=== PATIENT | female | born 1970 | race Caucasian/White ===

== ENCOUNTER → 2016-12-06 | Day surgery (SDC) | payer MEDICARE, OTHER ==
[~2016-12-06] MED LIST: DULOXETINE HCL60 MG PO; NEURONTIN100 MG PO; NOVOLOG FL100 UNIT/1 SUBQ; SYNTHROID PO; TOUJEO SOL300 UNIT/1 SUBQ; TRAZODONE HCL100 MG PO; XODOL 7.5-3001 EACH PO
--- NOTE | ~2016-12-06 | EKG ---
PATIENT: KATARINA ARAYA UNIT #: [id number] Ventricular Rate: 69 BPM Atrial Rate: 69 BPM P-R Interval: 150 ms QRS Duration: 80 ms Q-T Interval: 478 ms QTC Calculation(Bezet): 512 ms P [place]: 34 degrees Calculated R [place]: -3 degrees Calculated T [place]: 25 degrees Diagnosis Line: Normal sinus rhythm Diagnosis Line: Prolonged QT Diagnosis Line: Abnormal ECG Diagnosis Line: No previous ECGs available Diagnosis Line: Confirmed by VINICIUS ESCOBAR MD ([id number]) on 12/09/2016 Diagnosis Line: 3:57:23 PM INTERPRETING MD: SHAWN WADDELL
--- NOTE | ~2016-12-06 | OR ---
Unit #: [id number] #: [id number] Patient: MAGNOLIA WINSTON [id number] [address] [place], [place] [address] [id number] O MR#: [id number] NAME: MAGNOLIA WINSTON ROOM: Date of Procedure: 12/06/2016 Admission Date: 12/06/2016 Surgeon: Michel Fountain M.D. : 1970 Attending Physician: Michel Fountain M.D. Primary Care Physician: Generic Doctor Not In System OPERATIVE REPORT PREOPERATIVE DIAGNOSES 1. Multilevel lumbar degenerative disk disease. 2. Compression fracture, lumbar spine. 3. Chronic pain syndrome. POSTOPERATIVE DIAGNOSES 1. Multilevel lumbar degenerative disk disease. 2. Compression fracture, lumbar spine. 3. Chronic pain syndrome. PROCEDURES PERFORMED 1. Implantation of intrathecal Med[employer]onic SynchroMed II pump. 2. Implantation of Ascenda catheter. 3. Fluoroscopy. 4. Physician filling of pump. SURGICAL INDICATION AND RATIONALE Ms. Magnolia Winston is a 46-year-old female, who has been having chronic intractable pain, mainly in the low back secondary to multilevel degenerative disk disease with various other musculoskeletal problems including a compression fracture in the lumbar spine along with sacroiliitis. The patient also has a history of multiple joints involvement with indication of rheumatoid arthritis history. The patient has tried various conservative treatment options including epidural injections, radiofrequency ablation, opioid medication with escalating doses, nonsteroidal anti-inflammatory medications, physical therapy, and med care manager with minimal results. The patient did undergo an epidural pain pump trial with hydromorphone, in which she got about 80% to 90% benefit. The patient is keen to move forward to have this pump implanted. The patient has undergone an extensive education process regarding the SynchroMed pump with regard to the risks, benefits, and alternatives available including the consent decree. I have answered all the patient's questions to her satisfaction and I used a teach-back method to make sure that the patient understood my explanations. The patient also had an education process with [employer] senior outside sales representative, Nazia Ervin, regarding the same including the consent decree. All the patient's questions were answered to her satisfaction. The patient also had a psychological evaluation along with a cardiac evaluation, both of which did not show any abnormalities. DESCRIPTION OF PROCEDURE After obtaining full informed consent and after discussion with the Unit #: [id number] #: [id number] Patient: MAGNOLIA WINSTON patient of possible complications including infection, bleeding, paralysis, mild headaches, , and other perioperative complications were discussed with the patient and consent was obtained in front of nurse, Kathy. The patient was then taken back to the operating room, where a time-out was done in accordance to the joint commission guidelines where the patient's identity, procedure, and side of procedure were verified. The patient received antibiotic coverage 30 minutes before entering the operating room. The patient was then induced with general anesthesia and then was positioned in the prone position. The anesthesiologist made sure that all pressure points were padded. The patient was then prepped and draped in the usual fashion. Then, under fluoroscopic view, I was able to identify the interspace between L2 and L3, and after the skin target sites were anesthetized, I made an incision in the midline measuring about 4 cm in length. With the help of the Bovie, I was able to undermine the underlying tissue to allow space to place the SynchroMed Ascenda catheter. Once this was done, this incision was copiously irrigated with irrigant. I then anesthetized the skin in the low back. I made an incision measuring about 5.5 cm to create a pocket to house the reservoir of the pump. Once again with the help of the Bovie, I was able to create a pocket, which allowed the pump to snuggly fit. This pocket was once again copiously irrigated with irrigant. Then, under fluoroscopic view, an AP view, I was able to identify the interspace between L2 and L3, and I passed a 17-gauge Tuohy needle into the intrathecal space and I was able to attain this at first pass with clear flow of CSF. Once this was done, I navigated a [employer] SynchroMed catheter through the Tuohy needle such that the tip was at the upper border of T7. This was done under live fluoroscopic view. Once this was done, the stylet along with the Tuohy needle were removed and I used a special anchoring device to anchor this catheter to the interspinous ligament. This catheter was then secured to the underlying tissue using 3-0 Prolene sutures. I then used a tunneling device to tunnel this catheter into the pocket. The catheter was then cut to size and I used a special connector to connect this piece of catheter to the SynchroMed II pump. Once the connection was complete, I aspirated the SynchroMed pump side-port with a 24-gauge Saenz needle and I was able to aspirate CSF. This signifies that the pathway was intact. This pump was filled by me earlier on with hydromorphone at a concentration of 5 mg/ mL totaling 20 mL. Once this was done, the pump was then secured to the underlying tissue using 3-0 Prolene via the four anchors. I then sprinkled 1 g of vancomycin powder into the incision and the midline incision also. After this was done, the two incisions were carefully inspected and closed using interrupted 3-0 Vicryl sutures and the skin was approximated with kirsten. A Telfa-Tegaderm dressing was placed and the patient was brought back to the recovery room for neurological monitoring. The patient had an uneventful recovery period and was discharged home when she met criteria and was instructed to follow up in my office in 7 days to have the kirsten removed. The patient's pump was started at a daily dose of 0.3 mg and the PTM (patient home therapy teacher) was activated at 0.02 mg per activation and only two activations were allowed. The Med[employer]onic catheter serial number was [id number] and the SynchroMed II pump serial number was [id number]. Dictated by... Romel Bang/mane TD: 12/09/2016 21:03 Unit #: [id number] #: [id number] Patient: MAGNOLIA WINSTON JOB #: [id number] OPERATIVE REPORT Page 1 of 1 X Michel Fountain MD PROCEDURE OPERATIVE NOTE
--- NOTE | ~2016-12-06 | CR181 ---
[facility] A Service of [facility] RADIOLOGY TEXT RESULTS PATIENT: KATARINA ARAYA LOCATION: [facility] : 74 UNIT #: [id number] AGE: [address]: Michel Fountain MD SEX: F ORDER DR: [id number] [facility] [address] [facility]. [place], [place] [address] [id number] O MR#: [id number] Acc #: [id number] NAME: KATARINA ARAYA : 1970 SEX: F STUDY DATE/TIME: 12/06/2016 10:56 UNIT: [facility] ROOM: STUDY DESCRIPTION: CR Lumbar Spine 2 or 3 Views Attending Physician: Michel Fountain M.D. Ordering Physician: Michel Fountain M.D. Primary Care Physician: Generic Doctor Not In System MEDICAL IMAGING REPORT This report is preliminary unless electronic signature is present EXAM Lumbar intraoperative fluoroscopic images. DATE OF EXAM 12/06/2016 HISTORY Pain pump in OR. FLUOROSCOPY TIME 34 seconds. 2 fluoroscopic spot images. FINDINGS The 2 fluoroscopic spot images show patient undergoing intrathecal pain pump procedure. Incidental note is made of anterior wedge compression deformity at what is probably the L2 vertebral body; however, exact spine numbering unclear on basis of this examination alone, and I have no prior studies for comparison. Comparison with prior studies normally recommended. Acuity of this finding is unclear. There is mild compression deformity at what may be the L3 vertebral body as well. Please see procedural note for further procedural details. Dictated by... Sancho Krishnan M.D. THIS IS AN ELECTRONICALLY VERIFIED REPORT Sancho Krishnan M.D. at 12/07/2016 6:48 PM JULIO/sima TD: 12/06/2016 23:26 [facility] A Service [facility] RADIOLOGY TEXT RESULTS PATIENT: KATARINA ARAYA LOCATION: [facility] : 74 UNIT #: [id number] AGE: [address]: Michel Fountain MD SEX: F ORDER DR: JOB #: [id number] MEDICAL IMAGING REPORT Page 1 of 1 COPY
[2016-12-06 09:08] LABS: CALCIUM SERUM 8.7 mg/dL (8.4-10.2); CREATININE SERUM 0.5 mg/dL (0.6-1.4); GLOM FILT RATE Estimated 117.7 mL/min (>60); POTASSIUM 3.9 mmol/L (3.5-5.1)
== END | disposition home or self-care (01) ==
LOC: CSUR 08:03
PROVIDERS: Specialist
DX: G89.4 Chronic pain syndrome (principal); M51.36 Other intervertebral disc degeneration, lumbar region; S32.009A Unspecified fracture of unspecified lumbar vertebra, initial encounter for closed fracture; M46.1 Sacroiliitis, not elsewhere classified; J42 Unspecified chronic bronchitis; E11.9 Type 2 diabetes mellitus without complications; E03.9 Hypothyroidism, unspecified; F32.9 Major depressive disorder, single episode, unspecified; F17.210 Nicotine dependence, cigarettes, uncomplicated; Z88.0 Allergy status to penicillin; Z88.8 Allergy status to other drugs, medicaments and biological substances; Z79.891 Long term (current) use of opiate analgesic; Z79.899 Other long term (current) drug therapy; Z90.49 Acquired absence of other specified parts of digestive tract; Z90.710 Acquired absence of both cervix and uterus; Z90.89 Acquired absence of other organs; Z98.890 Other specified postprocedural states
CPT/HCPCS: 72100; 76001; 80048; 82947; 93005; C1772; J0330; J1100; J1170; J1815; J1885; J2250; J2270; J2405; J2710; J2765; J3010; J3370